=== PATIENT | male | born 1975 | race Caucasian/White ===

== ENCOUNTER 2025-01-09 09:49 | Emergency (ER) | payer OTHER, BC, SELFPAY ==
[2025-01-09] VITALS (36 sets, daily range): BP systolic 110–167; BP diastolic 71–114; PULSE 48–62; RESP 6–25; TEMP 36.3; O2SAT 91–99
--- NOTE | 2025-01-09 09:54 | CRLHL7_ITS ---
For Patients: As a result of the Century Cures Act, medical imaging exams and procedure reports are released immediately into your electronic medical record. You may view this report before your referring provider. If you have questions, please contact your health care provider. Indication: Fall, left shoulder pain Technique: Two views left clavicle Comparison: None Findings: There is a mildly displaced and comminuted distal left clavicle fracture extending to the acromioclavicular joint. Widening of the superior mediastinum. Impression: Distal left clavicular fracture. Widening of the superior mediastinum, possibly due to excess fat deposition. However, in the setting of trauma would recommend CT chest. Dictated by Dennys Resendiz MD @ 01/09/2025 10:43:56 AM (Electronically Signed)
--- NOTE | 2025-01-09 09:54 | CRLHL7_ITS ---
For Patients: As a result of the Cures Act, medical imaging exams and procedure reports are released immediately into your electronic medical record. You may view this report before your referring provider. If you have questions, please contact your health care provider. INDICATION: Fall from 8 foot TECHNIQUE: CT cervical spine without contrast. COMPARISON: None FINDINGS: No evidence of fracture or suspicious bony lesions. Disc Spaces Occipital-C2: Unremarkable. C2/3: Unremarkable. C3/4: Unremarkable. C4/5: Unremarkable. C5/6: Unremarkable. C6/7: Unremarkable. C7/T1: Unremarkable. Other: None. IMPRESSION: Unremarkable cervical spine CT. Please note that all CT scans at this facility use dose modulation, iterative reconstruction, and/or weight-based dosing when appropriate to reduce radiation dose to as low as reasonably achievable. Dictated by Otis Werner MD @ 01/09/2025 10:35:51 AM (Electronically Signed)
--- NOTE | 2025-01-09 09:54 | CRLHL7_ITS ---
For Patients: As a result of the Cures Act, medical imaging exams and procedure reports are released immediately into your electronic medical record. You may view this report before your referring provider. If you have questions, please contact your health care provider. INDICATION: TRAUMA, CHEST PAIN POST FALL TECHNIQUE: Chest 1 view COMPARISON: None FINDINGS: Lungs clear. Distal left clavicle fracture. Widening of the superior mediastinum probably due to excess fat deposition. IMPRESSION: Left distal clavicle fracture. Clear lungs. Probable normal superior mediastinum although would consider CT given history of trauma. Dictated by Dennys Resendiz MD @ 01/09/2025 10:49:04 AM (Electronically Signed)
--- NOTE | 2025-01-09 09:54 | CRLHL7_ITS ---
For Patients: As a result of the Century Cures Act, medical imaging exams and procedure reports are released immediately into your electronic medical record. You may view this report before your referring provider. If you have questions, please contact your health care provider. Indication: FALL, LEFT SHOULDER PAIN Technique: Left shoulder 3 views. Comparison: None. Findings: Displaced and comminuted distal clavicular fracture with extension to the AC joint. Normal acromion. Proximal humerus intact. Intact visualized ribs. Impression: Acute distal left clavicular fracture. Dictated by Dennys Resendiz MD @ 01/09/2025 10:45:02 AM (Electronically Signed)
--- NOTE | 2025-01-09 10:00 | CRLHL7_ITS ---
For Patients: As a result of the Century Cures Act, medical imaging exams and procedure reports are released immediately into your electronic medical record. You may view this report before your referring provider. If you have questions, please contact your health care provider. INDICATION: Fall from 8 feet TECHNIQUE: CT head without contrast. COMPARISON: None. FINDINGS: CSF spaces: Within normal limits for age. Brain parenchyma: The mendes-white differentiation is normal. No sign of mass, hemorrhage, or midline shift. Skull base and calvarium: The visualized paranasal sinuses and mastoid air cells demonstrate no acute or significant findings. The visualized orbits are grossly unremarkable. No skull fractures. IMPRESSION: Unremarkable noncontrast head CT. Please note that all CT scans at this facility use dose modulation, iterative reconstruction, and/or weight-based dosing when appropriate to reduce radiation dose to as low as reasonably achievable. Dictated by Otis Werner MD @ 01/09/2025 10:31:49 AM (Electronically Signed)
--- NOTE | 2025-01-09 10:07 | ED.GENADULT ---
HPI - General Adult General Chief complaint: Fall/Minor Trauma Stated complaint: fall Time Seen by Provider: 01/09/25 09:54 Source: patient Mode of arrival: ambulatory Limitations: no limitations History of Present Illness HPI narrative: 49-year-old male presenting today after falling 6-8 feet down from a lift. Patient landed on his back left side. He is complaining of left shoulder pain. He is also complaining of pain of the right calf. He denies neck or back pain. He states that he did not lose consciousness. He had a hard hat in place. He denies headache. No chest pain, no pain with deep inspiration, no abdominal pain. Past medical history significant for ulcerative colitis. Patient currently takes only Lexapro. Related Data Home Medications ?Medication ?Instructions ?Recorded ?Confirmed escitalopram oxalate .ROUTE 01/09/25 Allergies Allergy/AdvReac Type Severity Reaction Status Date / Time codeine Allergy Unknown Verified 01/09/25 11:51 Review of Systems Status of ROS: Reports: 6 or more systems reviewed and unremarkable except as noted in History and below PFSH [facility] Social History Smoking Status: Never smoker How often do you have a drink containing alcohol: monthly or less AUDIT-C Alcohol total score: 1 Non-prescribed substance use: denies use Exam Narrative: Exam Narrative: Well-nourished well-developed patient, clearly uncomfortable. Alert and oriented x3. Answers questions appropriately. Mood and affect are appropriate. Thoughts are goal oriented and rational. No tangential or magical thinking noted. Patient speaks in full sentences without needing to catch their breath. GCS is 15. Patient is speaking and breathing without difficulty. There is no obvious significant bleeding noted. HEENT: Normocephalic atraumatic. Pupils are equally round reactive to light. Extraocular muscles are intact. Conjunctivae are moist without any icterus noted. Moist mucous membranes. Posterior pharynx is normal. No trauma noted to the inside of the mouth. Neck is soft without any lymphadenopathy or thyromegaly. No masses are appreciated. Cardiovascular: Heart is regular rate and rhythm S1 and S2 are present without any murmurs. Lungs: Clear to auscultation bilaterally no wheezes rhonchi or rales are appreciated. Patient takes deep breaths without any discomfort. Patient has no tenderness to palpation of the anterior chest wall, no pain over the sternum. Abdomen: Soft and nontender nondistended with normal bowel sounds. No guarding or rebound. No masses or organomegaly appreciated. Extremities: Bilateral lower extremities are without edema. Normal DP and PT pulses. Patient has a superficial abrasion of the right calf corresponding with the area of tenderness. He has no tenderness to firm palpation of the pelvis. He can move the bilateral lower extremities without pain at the hip, knee and ankle joints. He has significant tenderness over the left anterior, superior shoulder. No tenderness over the mid humerus down. No tenderness over the scapula. He does have tenderness over the left clavicle. Skin: Well perfused. Back: Patient has a superficial road rash over the left mid back. No corresponding tenderness. Patient has no tenderness to palpation at the cervical, thoracic or lumbar spine. Patient has full range of motion at the neck with flexion, extension, side way bending and rotation without pain at the posterior neck but this does elicit pain of the left shoulder. There is no swelling visible at the neck. Const: Vital Signs, click to edit/add: Vital Signs - 24 hr 01/09/25 09:50 01/09/25 09:54 01/09/25 10:33 Temperature 97.4 F L Pulse Rate 52 L Pulse Rate [Pulse Oximeter] 59 L Respiratory Rate 22 14 Blood Pressure 135/83 Blood Pressure [Ri ght Upper Arm] 167/114 H Pulse Oximetry 97 97 91 Oxygen Delivery Me thod Room Air 01/09/25 10:34 01/09/25 10:42 01/09/25 10:45 Temperature Pulse Rate 52 L 51 L 49 L Pulse Rate [Pulse Oximeter] Respiratory Rate Blood Pressure 127/84 Blood Pressure [Ri ght Upper Arm] Pulse Oximetry 92 92 94 Oxygen Delivery Me thod 01/09/25 10:51 01/09/25 11:00 01/09/25 11:01 Temperature Pulse Rate 53 L 50 L 55 L Pulse Rate [Pulse Oximeter] Respiratory Rate 16 12 14 Blood Pressure 125/108 H 125/81 Blood Pressure [Ri ght Upper Arm] Pulse Oximetry 93 92 91 Oxygen Delivery Az thod 01/09/25 11:02 01/09/25 11:12 01/09/25 11:15 Temperature Pulse Rate 52 L 51 L 52 L Pulse Rate [Pulse Oximeter] Respiratory Rate 12 12 Blood Pressure 126/79 Blood Pressure [Ri ght Upper Arm] Pulse Oximetry 91 91 96 Oxygen Delivery Me thod 01/09/25 11:21 01/09/25 11:22 01/09/25 12:01 Temperature Pulse Rate 53 L 50 L 51 L Pulse Rate [Pulse Oximeter] Respiratory Rate 14 14 12 Blood Pressure 132/81 Blood Pressure [Ri ght Upper Arm] Pulse Oximetry 96 93 94 Oxygen Delivery Me thod Course Course ED Course: Proceeded with head and neck CT were both of which were unremarkable. Shoulder and clavicular x-ray shows a distal clavicular fracture. Chest x-ray was unremarkable. There was mention of a widened mediastinum with recommendation to follow up with a CT scan. This was done and was unremarkable. Consulted with Orthopedics, Malcolm Frances, recommended a sling at this time. Patient's pain was controlled with IV fentanyl and morphine. He had no developing chest pain or shortness of breath. No developing abdominal pain during his time of observation. Remained hemodynamically stable. An EKG was done which showed sinus bradycardia with normal QRS and SC intervals. Of note, CT does show evidence of cirrhosis and splenomegaly. Patient states that he has aware of this, has a history of alcohol use disorder and stop drinking alcohol 2 years ago. Vital Signs Vital signs: Initial Vital Signs Temperature 97.4 F L 01/09/25 09:50 Temperature Source Temporal Artery Scan 01/09/25 09:50 Pulse Rate 59 L 01/09/25 09:50 Respiratory Rate 01/09/25 09:50 Blood Pressure 167/114 H 01/09/25 09:50 Blood Pressure Mean 131 H 01/09/25 09:50 Blood Pressure Position Supine 01/09/25 09:50 Pulse Oximetry 97 01/09/25 09:50 Oxygen Delivery Method Room Air 01/09/25 09:50 Vital Signs Temperature 97.4 F L 01/09/25 09:50 Pulse Rate 59 L 01/09/25 09:50 Respiratory Rate 01/09/25 09:50 Blood Pressure 167/114 H 01/09/25 09:50 Pulse Oximetry 97 01/09/25 09:50 Oxygen Delivery Method Room Air 01/09/25 09:50 Temperature 97.4 F L 01/09/25 09:50 Pulse Rate 51 L 01/09/25 12:01 Respiratory Rate 12 01/09/25 12:01 Blood Pressure 132/81 01/09/25 11:21 Pulse Oximetry 94 01/09/25 12:01 Oxygen Delivery Method Room Air 01/09/25 09:50 Medications Administered Medications: Discontinued Medications Generic Name Dose Route Start Last Admin Trade Name Tabatha PRN Reason Stop Dose Admin Fentanyl 50 mcg 01/09/25 09:54 01/09/25 09:54 Fentanyl 100 Mcg/2 Ml Inj IVP 01/09/25 09:55 50 mcg ONCE ONE Administration Fentanyl 50 mcg 01/09/25 11:20 01/09/25 11:25 Fentanyl 100 Mcg/2 Ml Inj IVP 01/09/25 11:21 50 mcg ONCE ONE Administration Morphine Sulfate 2 mg 01/09/25 12:23 01/09/25 12:43 Morphine 2 Mg/Ml Inj IVP 01/09/25 12:24 2 mg ONCE ONE Administration Medical Decision Making MDM Narrative Medical decision making narrative: 49-year-old male status post fall from 6-8 feet in the air. Presenting with acute follicular fracture. No evidence of other life-threatening significant injuries seen. Patient be placed in the sling will follow-up with orthopedics at the end of this week. Imaging Data CT scan - head: Attestation: I have reviewed the pertinent imaging results. Radiologist's impression: TECHNIQUE: CT head without contrast. COMPARISON: None. FINDINGS: CSF spaces: Within normal limits for age. Brain parenchyma: The mendes-white differentiation is normal. No sign of mass, hemorrhage, or midline shift. Skull base and calvarium: The visualized paranasal sinuses and mastoid air cells demonstrate no acute or significant findings. The visualized orbits are grossly unremarkable. No skull fractures. IMPRESSION: Unremarkable noncontrast head CT. CT cervical spine: Attestation: I have reviewed the pertinent imaging results. Radiologist's impression: TECHNIQUE: CT cervical spine without contrast. COMPARISON: None FINDINGS: No evidence of fracture or suspicious bony lesions. Disc Spaces Occipital-C2: Unremarkable. C2/3: Unremarkable. C3/4: Unremarkable. C4/5: Unremarkable. C5/6: Unremarkable. C6/7: Unremarkable. C7/T1: Unremarkable. Other: None. IMPRESSION: Unremarkable cervical spine CT. X-ray clavicle: Attestation: I have reviewed the pertinent imaging results. Radiologist's impression: Technique: Two views left clavicle Comparison: None Findings: There is a mildly displaced and comminuted distal left clavicle fracture extending to the acromioclavicular joint. Widening of the superior mediastinum. Impression: Distal left clavicular fracture. Widening of the superior mediastinum, possibly due to excess fat deposition. However, in the setting of trauma would recommend CT chest. X-ray shoulder: Attestation: I have reviewed the pertinent imaging results. Radiologist's impression: Indication: FALL, LEFT SHOULDER PAIN Technique: Left shoulder 3 views. Comparison: None. Findings: Displaced and comminuted distal clavicular fracture with extension to the AC joint. Normal acromion. Proximal humerus intact. Intact visualized ribs. Impression: Acute distal left clavicular fracture. Chest x-ray: Attestation: I have reviewed the pertinent imaging results. Radiologist's impression: TRAUMA, CHEST PAIN POST FALL TECHNIQUE: Chest 1 view COMPARISON: None FINDINGS: Lungs clear. Distal left clavicle fracture. Widening of the superior mediastinum probably due to excess fat deposition. IMPRESSION: Left distal clavicle fracture. Clear lungs. Probable normal superior mediastinum although would consider CT given history of trauma. CT scan - chest: Attestation: I have reviewed the pertinent imaging results. Radiologist's impression: TECHNIQUE: CT chest was acquired with 75 cc Isovue 370 contrast. COMPARISON: Same day chest radiograph FINDINGS: Cardiovascular structures: Heart size is normal. Thoracic aorta and main pulmonary artery are normal in caliber. Mediastinum and aurora: No mass or adenopathy. Lungs: No suspicious pulmonary nodules or infiltrates. Pleura and pericardium: No effusions. No pneumothorax. Chest wall and axilla: No mass or adenopathy. Bones: No acute fractures. No aggressive appearing bone lesions Upper abdomen: Hepatic cirrhosis. The partially visualized spleen is enlarged, measuring 18.7 cm in anteroposterior extent. Cholelithiasis IMPRESSION: 1. No acute traumatic findings in the chest. 2. Hepatic cirrhosis with at least moderate splenomegaly, indicating portal hypertension. ECG Data Attestation: I personally reviewed and interpreted this ECG as follows: Discharge Plan Discharge Clinical Impression: Clavicle fracture Patient Disposition: Home, Self-Care Condition: Stable Additional Instructions: Okay to use pain medication as needed/as directed. These medications can cause constipation and dizziness, take with caution. Follow-up with orthopedic surgery as scheduled. Wear sling at all times. Okay to take off to shower. 12 tablets of Percocet sent to [facility]. Orthopedic follow up: January 10 at 0840 (Arrival time at 0830) at the [facility] with Dr. Valladares. Location: [address] [place] [address]. Please call [phone] for appointment questions. Prescriptions: No Action escitalopram oxalate [Lexapro] .ROUTE Stand Alone Forms: ethology Info Instructions
--- NOTE | 2025-01-09 10:51 | CRLHL7_ITS ---
For Patients: As a result of the Century Cures Act, medical imaging exams and procedure reports are released immediately into your electronic medical record. You may view this report before your referring provider. If you have questions, please contact your health care provider. INDICATION: FALL FROM 8FT TECHNIQUE: CT chest was acquired with 75 cc Isovue 370 contrast. COMPARISON: Same day chest radiograph FINDINGS: Cardiovascular structures: Heart size is normal. Thoracic aorta and main pulmonary artery are normal in caliber. Mediastinum and aurora: No mass or adenopathy. Lungs: No suspicious pulmonary nodules or infiltrates. Pleura and pericardium: No effusions. No pneumothorax. Chest wall and axilla: No mass or adenopathy. Bones: No acute fractures. No aggressive appearing bone lesions Upper abdomen: Hepatic cirrhosis. The partially visualized spleen is enlarged, measuring 18.7 cm in anteroposterior extent. Cholelithiasis IMPRESSION: 1. No acute traumatic findings in the chest. 2. Hepatic cirrhosis with at least moderate splenomegaly, indicating portal hypertension. Please note that all CT scans at this facility use dose modulation, iterative reconstruction, and/or weight-based dosing when appropriate to reduce radiation dose to as low as reasonably achievable. Dictated by Sushil Palmer MD @ 01/09/2025 12:12:21 PM (Electronically Signed)
--- NOTE | 2025-01-09 11:29 | ED.NURSE ---
Patient taken to radiology for additional CT scan. Another dose of Fentanyl administered for pain.
[2025-01-09] MEDS: HYDROCODONE-ACETAMIN 5-325 MG 1 TAB 2 TAB PO (14:38)
== END 2025-01-09 15:03 | disposition home or self-care (01) ==
PROVIDERS: Emergency Provider Family Medicine; PCP Physician Assistant
DX: S42.035A Nondisplaced fracture of lateral end of left clavicle, initial encounter for closed fracture (principal); W17.89XA Other fall from one level to another, initial encounter
CPT/HCPCS: 70450; 71045; 71260; 72125; 73000; 73030; 93005; 94761; 96374; 96375; 96376; 99285; 99291; A9270; G0390; J1885; J2270; J3010; Q9967